=== PATIENT | female | born 1980 | race Caucasian/White ===

== ENCOUNTER 2016-07-04 06:49 | Day surgery (SDC) | payer MEDICAID ==
[~2016-07-04 06:49] MED LIST: RINGERS SOLUTION,LACTATED 1,000 ML IV PRN
[2016-07-04 07:04] LABS: Hematocrit 40.5 % (37.0-47.0); Hemoglobin 13.4 gm/dL (12.5-16.0); Mean Cell Volume 95.1 fl (78-100); Mean Corpuscular Hemoglobin 31.5 pg (27-31); Mean Corpuscular Hgb Conc 33.1 g/dl (32-36); Mean Platelet Volume 8.8 fl (6.0-9.5); Neutrophil # 5.5 K/mm3 (1.3-6.0); Neutrophil % 63.4 % (42-75.0); Platelet Count 285 K/mm3 (150-450); Red Blood Count 4.26 M/mm3 (4.2-5.4); Red Cell Distribution Width 12.2 % (11.5-14.0); White Blood Count 8.6 K/mm3 (4.0-10.5)
[2016-07-04] MEDS ORDERED: RINGERS SOLUTION,LACTATED 1,000 ML IV ONE (07:10)
[2016-07-04 07:41] LABS: Anion Gap 13.6 mmol/L (6.8-13.8); BUN/Creatinine Ratio 12.1 (9.0-21.6); Bilirubin, Total 0.4 mg/dL (0.0-1.1); Ca. Corrected For Albumin 8.9 mg/dL (8.4-10.2); Calcium * 9.2 mg/dL (7.9-10.9); Carbon Dioxide 27.3 mmol/L (24-32.6); Potassium 3.9 mmol/L (3.4-4.6); Total Protein 7.5 gm/dL (6.2-8.2)
[2016-07-04] MEDS ORDERED: ceFAZolin SODIUM 1 GM VIAL IV ONE (08:10)
[2016-07-04] MEDS ORDERED: BUPIVACAINE HCL 50 ML VIAL IJ ONE (10:10)
[2016-07-04] MEDS ORDERED: RINGERS SOLUTION,LACTATED 1,000 ML IV PRN (10:46)
[2016-07-04] MEDS ORDERED: oxyCODONE HCL/ACETAMINOPHEN 1 TAB TABLET PO ONE (10:46)
[2016-07-04] MEDS ORDERED: IBUPROFEN 800 MG TABLET PO ONE (10:46)
--- NOTE | 2016-07-04 10:54 | OR ---
Operative Report - Dictated Report Narrative: Date of Procedure: 07/04/2016 PROCEDURE: 1. Hysteroscopy, D&C 2. Laparoscopy, lysis of adhesion and bilateral salpingectomy ANESTHESIA: General with endotracheal intubation. PREOPERATIVE DIAGNOSIS: 1. LLQ pain. 2. Endometrial polypoid mass 1.1 cm at scar 3. Left adnexal mass 5.1 x 2.6 x 2.7 cm (hydrosalpinx vs complicated cyst) 4. S/P x 2 and bilateral tubal ligations. POSTOPERATIVE DIAGNOSES: 1. LLQ pain. 2. Endometrial polypoid mass 1.1 cm at scar 3. Left adnexal mass 5.1 x 2.6 x 2.7 cm (hydrosalpinx vs complicated cyst) 4. S/P x 2 and bilateral tubal ligations. 5. White patch 3 x 4 cm in size over left liver surface (fibrosis vs scar tissue ?) SURGEON: Yoly Pimentel MD BOOKBINDING MACHINE OPERATOR: Xiomara Delgado FINDINGS: 1. White patch 3 x 4 cm in size over left liver surface (fibrosis vs scar tissue ?) 2. Uterus, sounded to 8 cm with endometrial polypoid tissue anteriorly. No fibroids. Both tubal ostia seen. 3. Omental adhesions to anterior abdominal wall. 4. Left hydrosalpinx 5 x 3 x 3 cm. 5. Evidence of bilateral tubal ligations. Both ovaries appeared normal. SPECIMEN: 1. Endometrial curettings. 2. Right fallopian tube (distal and proximal portions). 3. Left fallopian tube with fluid for cytology. DRAINS: None. URINE OUTPUT: 200 ml BLOOD LOSS: 10 ml INTRAOPARATIVE IV FLUIDS: 1300 ml Uterine Distending Solution: Normal saline, in 500 ml, out 400 ml, deficit 100 ml. COMPLICATIONS: None. DESCRIPTION OF PROCEDURE: The patient consented prior to the operation and taken to the operating room. She was placed on the operating table supine. SCDs were placed on her lower extremities. General anesthesia was induced. Two grams of ancef was given by IV prior to anesthesia induction. She was repositioned in the dorsal lithotomy position. Her right arm was tucked at her side under the drape. Exam under anesthesia revealed a normal size uterus with left adnexal fullness. The abdomen was prepped with Chloraprep and the vagina was prepped with Betadine. She was draped in the usual sterile fashion. A time-out procedure was conducted to confirm the correct patient for the correct procedure. A bivalve speculum was placed into the vagina. The cervix was visualized. The vagina and the cervix were prepped with Betadine one more time. The anterior cervix was grasped with a single-tooth tenaculum. The uterus was sounded to 8 cm. Cervix was dilated with dilators. A 30 degree hysteroscope was inserted into the uterine cavity. Exam of the uterine cavity revealed some polypoid endomerial tissue anteriorly. There were no fibroids or other pathologies. Both tubal ostia were seen. The hysteroscope was removed. Cervix was dilated further with dilators. The bivalve speculum was replaced with a weighted speculum. A sharp curette was inserted into the uterine cavity. The cavity was scraped in all directions. Moderate amount of endometrial curettings were obtained. The weighted speculum was changed back to a bivalve speculum. A Zumi uterine manipulator was inserted into the uterine cavity. The single tooth tenaculum was removed. The bivalve speculum was removed. The surgeon then changed gloves and attention was paid to the abdomen. The patient had a very loose abdominal wall. So it was decided to place a Veress needle first. The umbilicus was lifted with two towel clips. The Veress needle was inserted into the abdomen via the deepest portion of the umbilicus. Intraabdominal placement was confirmed by a saline drop test and with low entry pressure of 2 mmHg. The abdomen was insufflated with CO2 gas to an intraabdominal pressure of 15 mmHg and soon after achieving this pressure, the intraabdominal pressure went up to 37 mmHg instantly. At that point, the Veress needle was quickly removed. A small vertical incision was quickly made at the lower edge of the umbilicus. During this process, the #11 blade somehow accidentally punctured my left index finger after completing the umbilical incision. The knife was removed from the field and replaced. There was no obvious bleeding from my finger. A 5 mm trocar with the laparoscope was inserted through the umbilicus incision into the abdomen. Intraabdominal placement was confirmed with the laparoscope. Quick survey of the entry site revealed no trauma to the underlying structures. At this point, I scrubbed out to check my injury. There was a tiny hole in my index finger and only with excessive pressure, a small drop of blood was expressed. I cleaned my wound with betadine and scrubbed back to complete the procedure. At that point, the intraabdominal pressure was stabilized at 15 mm Hg and was reduced to 12 mmHg for the rest of the procedure. Survey of the upper abdomen revealed the findings noted above. The patient was placed in Trendelenburg position. Three more trocars were placed in the lower abdomen. A 12 mm left lower quadrant trocar, a 5 mm right lower quadrant trocar and a 5 mm suprapubic trocar were placed under the direct visualization of the laparoscope. Survey of the pelvis revealed the findings noted above. At this point, the bladder was noted to be distended. So a Christianson catheter was inserted into the bladder using sterile technique. Attention was now turned to the right side. The fimbria portion of the right fallopian tube was elevated. The mesosalpinx was divided with a Thunderbeat. This portion of the tube was removed through the 12 mm trocar. Next the cornual portion of the right tube was removed with the Thunderbeat and that portion of the tube was removed through the 12 mm trocar. Next, the left fallopian tube was elevated. The mesosalpinx was divided with the Thunderbeat. An endobag was placed through the 12 mm trocar. The swollen left tube was placed inside the bag and brought through the LLQ 12 mm trocar. The swollen tube was deflated inside the bag with a Veress needle and removed without spillage. The pelvis was irrigated with saline. There was hemostasis of surgical area. The patient was taken out of Trendelenburg. Three lower abdominal trocars were removed under direct visualization. The abdomen was deflated. The trocar at the umbilicus was removed with the laparoscope. The fascia of the LLQ 12 mm trocar was closed with 0 vicryl suture on a UR-6 needle. The skin incisions were closed with 4-0 Monocryl suture. The incision was infiltrated with 2-3 ml of 0.25 % of marcaine for post op pain management and the incisions were covered with Steri-Strips. The Zumi was removed from the uterus. The Christianson was removed. Patient tolerated the procedure well. All counts were correct. The patient was taken to the recovery room in stable condition. Yoly Pimentel MD
[2016-07-04 12:38] VITALS: BP 118/72
== END 2016-07-04 06:50 | disposition home or self-care (01) ==
LOC: AMB 06:49
PROVIDERS: ATTEND Obstetrics & Gynecology
PROC: 0UN64ZZ Release Left Fallopian Tube, Percutaneous Endoscopic Approach (ICD-10-PCS; 2016-07-04)
PROC: 0UDB8ZX Extraction of Endometrium, Via Natural or Artificial Opening Endoscopic, Diagnostic (ICD-10-PCS; principal; 2016-07-04 08:00)
PROC: 0UT74ZZ Resection of Bilateral Fallopian Tubes, Percutaneous Endoscopic Approach (ICD-10-PCS; 2016-07-04 08:00)
DX: N84.0 Polyp of corpus uteri (principal); N70.11 Chronic salpingitis; N73.6 Female pelvic peritoneal adhesions (postinfective); F17.200 Nicotine dependence, unspecified, uncomplicated; Z68.31 Body mass index [BMI] 31.0-31.9, adult

== ENCOUNTER 2016-08-28 19:30 | Emergency (ER) | payer MEDICAID, OTHER ==
[2016-08-28] MEDS ORDERED: KETOROLAC TROMETHAMINE 60 MG/2 ML VIAL IM ONE ×3 (20:23→21:13)
[2016-08-28] MEDS ORDERED: ORPHENADRINE CITRATE 30 MG/ML VIAL IM ONE (20:23)
[2016-08-28] MEDS ORDERED: ORPHENADRINE CITRATE 30 MG/ML VIAL ONE ×2 (20:26→21:13)
--- NOTE | 2016-08-28 20:31 | ERNOTE ---
Back Pain ER HPI Date of Service: 08/28/16 Presenting Symptoms: injury/pain to back Time Seen by Provider: 08/28/16 20:19 Source: patient Exam Limitations: no limitations Immunizations: IMMUNIZATION HX Immunizations Up to Date Yes Allergies/Adverse Reactions: Allergies No Known Allergies Allergy (Verified 08/28/16 19:38) Home Medications: HOME MEDICATIONS Cyclobenzaprine HCl [Flexeril] 10 mg PO TID PRN #30 tab 08/28/16 [Last Taken Unknown] Naproxen [Naprosyn] 500 mg PO BID PRN #60 tab 08/28/16 [Last Taken Unknown] Narrative: Pt. comes in with c/o low back pain that radiates down his L leg. Pt. denies any numbness, tingling, SOB, CP, NVD, fever, recent illness or injury. Pt. has a recent job change where she is using her back for lifting frequently. Pt. denies any prehospital treatment. Review of Systems - Review of Systems Constitutional: Present: no symptoms reported. Absent: recent illness, fever, chills, weakness, fatigue, malaise EYE: Present: no symptoms reported ENT: Present: no symptoms reported Respiratory: Present: no symptoms reported. Absent: shortness of breath, cough , wheezing Cardiology: Present: no symptoms reported. Absent: chest pain, palpitations, edema Gastrointestinal/Abdominal: Present: no symptoms reported. Absent: nausea, vomiting, diarrhea Genitourinary: Present: no symptoms reported Musculoskeletal: Present: back pain, muscle pain - L post leg. Absent: muscle stiffness, joint pain Skin: Present: no symptoms reported Neurological: Present: no symptoms reported. Absent: headache, dizziness/light- headedness, numbness, tingling All Other Systems: All systems neg except as marked - Patient's Past Medical History Patient History - Medical: No pertinent hx, Anxiety Patient History - Cardiac/Respiratory: No pertinent hx Patient History - Cancer: No Hx of Cancer Patient History - Surgical Procedures: , T & A Patient History - Other: None LMP (Calendar): 07/01/16 - Family History Mother Family History - Medical: , No pertinent hx Family History - Cardiac/Respiratory: Hypertension, Hyperlipidemia Family History - Cancer: Liver - Social History Living Situations: home Abuse History: No History of abuse Psych History: No pertinent hx Smoking Status: Current every day smoker Patient requests Smoking Cessation Consult: No Initiate information on Smoking Cessation: No Alcohol Use: occasionally Drug Use: none - Immunizations Immunizations Up to Date: Yes Physical Exam - Physical Exam General Appearance: Present: wd/wn, alert, no apparent distress Eye Exam: Normal inspection: bilateral, PERRL: bilateral, EOMI: bilateral Ears, Nose, Throat: Present: normal ENT inspection, normal pharynx Neck: Present: normal inspection, nontender, supple, full range of motion. Absent: lymphadenopathy (R), lymphadenopathy (L), tender lateral, tender posterior midline Respiratory: Present: no respiratory distress Cardiovascular/Chest: Present: regular rate, rhythm, no murmur, normal peripheral pulses Back Exam: Present: normal range of motion, no CVA tenderness, vertebral tenderness - L5/S1 Extremity Exam: Present: normal inspection, non-tender, normal range of motion, no edema Neurological Exam: Present: alert, oriented, normal mood/affect, no motor/ sensory deficits Skin Exam: Present: normal color, warm/dry. Absent: pallor, skin rash ED Progress - Vital Signs Patient's Vital Signs:: I have reviewed the patient's vital signs. Vital Signs: Vital Signs 08/28/16 08/28/16 19:30 19:34 Temperature 36.8 C Pulse Rate 93 Respiratory 20 Rate Blood Pressure 127/73 116/87 O2 Sat by Pulse 100 Oximetry - X-Ray X-Ray #1 X-Ray: lumbosacral Interpretation: Interp. by me X-ray Comments: no acute obvious ossious abnormality - Progress/Reassessment Chief Complaint: Back Pain Progress:: Improved Departure Clinical Impression: Lumbosacral strain Qualifiers: Encounter type: initial encounter Qualified Code(s): S39.012A - Strain of muscle, fascia and tendon of lower back, initial encounter - Departure Disposition: Home self-care Condition: Good Instructions: Low Back Sprain With Rehab-[facility] Additional Instructions: Please follow up with primary provider in 2-3 days if no improvement. Prescriptions: Cyclobenzaprine HCl [Flexeril] 10 mg PO TID PRN #30 tab PRN Reason: MUSCLE SPASMS Naproxen [Naprosyn] 500 mg PO BID PRN #60 tab PRN Reason: Pain
[2016-08-28 21:20] VITALS: BP 121/92
[2016-08-28] MEDS ORDERED: LIDOCAINE 1 PATCH ADH..PATCH TP SCH (21:30)
== END 2016-08-28 21:35 | disposition home or self-care (01) ==
LOC: ER 19:30
DX: S39.012A Strain of muscle, fascia and tendon of lower back, initial encounter (principal); F17.210 Nicotine dependence, cigarettes, uncomplicated; X50.1XXA Overexertion from prolonged static or awkward postures, initial encounter; Y99.0 Civilian activity done for income or pay; M79.605 Pain in left leg